=== PATIENT | female | born 1990 | race Caucasian/White ===

== ENCOUNTER 2017-02-16 01:32 | Emergency (ER) | payer OTHER | END 2017-02-16 04:10 | disposition left against medical advice (07) | LOC: ER1 01:32 | DX: Z53.21 Procedure and treatment not carried out due to patient leaving prior to being seen by health care provider (principal) | CPT/HCPCS: 93005 ==

== ENCOUNTER 2020-10-10 18:26 | Emergency (ER) | payer OTHER ==
[~2020-10-10 18:26] MED LIST: HYDROCODON-ACE1 EAC4 PO; IBUPROFEN600 MG PO; IMITREX50 MG PO; LOVENOX30 MG/0.3 SQ; NORCO 7.5-3251 EACH PO; PERCOCET 5-3251 EACH PO; ZOFRAN 4 MG TAB4 MG PO; ZOFRAN4 MG PO
== END 2020-10-10 21:55 | disposition left against medical advice (07) ==
LOC: ER1 18:26
DX: R07.9 Chest pain, unspecified (principal); Z53.21 Procedure and treatment not carried out due to patient leaving prior to being seen by health care provider
CPT/HCPCS: 93005

== ENCOUNTER 2020-10-12 23:10 | Emergency (ER) | payer OTHER ==
[2020-10-13 01:35] LABS: HEMOGLOBIN 13.8 gm/dl (12.3-15.3); RED BLOOD COUNT 4.44 M/UL (4.00-5.10); WHITE BLOOD COUNT 7.6 K/UL (4.5-11.0)
[2020-10-13 02:03] LABS: BUN/CREATININE RATIO 22 (0-10)
== END 2020-10-13 05:09 | disposition home or self-care (01) ==
LOC: ER1 23:10
PROVIDERS: Physician Assistant
DX: R07.89 Other chest pain (principal); R06.02 Shortness of breath; R00.0 Tachycardia, unspecified; F41.9 Anxiety disorder, unspecified; F32.9 Major depressive disorder, single episode, unspecified; Z79.899 Other long term (current) drug therapy
CPT/HCPCS: 71045; 80053; 82550; 82553; 83874; 83880; 84484; 85025; 85379; 85610; 85730; 93005; 99285

== ENCOUNTER 2021-04-29 14:47 | Emergency (ER) | payer OTHER ==
[2021-04-29 15:47] LABS: HEMOGLOBIN 13.7 gm/dl (12.3-15.3); RED BLOOD COUNT 4.28 M/UL (4.00-5.10); WHITE BLOOD COUNT 5.6 K/UL (4.5-11.0)
[2021-04-29 16:14] LABS: BUN/CREATININE RATIO 14 (0-10)
[2021-04-29] MEDS ORDERED: IBUPROFEN600 MG PO (16:59)
== END 2021-04-29 17:25 | disposition home or self-care (01) ==
LOC: ER1 14:47
PROVIDERS: Emergency Medicine
DX: M79.662 Pain in left lower leg (principal); M25.562 Pain in left knee; M79.652 Pain in left thigh
CPT/HCPCS: 73502; 73562; 80053; 82550; 82553; 83735; 83874; 84484; 84703; 85025; 85379; 93005; 96374; 99284; J1885

== ENCOUNTER → 2021-09-12 | Outpatient (CLI) | payer OTHER ==
[~2021-09-12] MED LIST changes: +LEXAPRO10 MG PO; +[UNRECOGNIZED DRUG - OTHER] PO
== END ==
LOC: OPSV2 09:30
DX: Z01.812 Encounter for preprocedural laboratory examination (principal)
CPT/HCPCS: 83036

== ENCOUNTER → 2021-09-18 | Day surgery (SDC) | payer OTHER ==
[~2021-09-18] VITALS: Ht 154.9 cm; Wt 87.5 kg
[~2021-09-18] MED LIST changes: +CYCLOBENZAPRINE10 MG PO; +ENDOCET 7.5-321 EACH PO
== END | disposition home or self-care (01) ==
LOC: OR 07:45
DX: T84.84XA Pain due to internal orthopedic prosthetic devices, implants and grafts, initial encounter (principal); Z96.661 Presence of right artificial ankle joint; X58.XXXA Exposure to other specified factors, initial encounter; Y79.2 Prosthetic and other implants, materials and accessory orthopedic devices associated with adverse incidents; Y83.8 Other surgical procedures as the cause of abnormal reaction of the patient, or of later complication, without mention of misadventure at the time of the procedure; Y92.9 Unspecified place or not applicable; Z72.0 Tobacco use; Z20.822 Contact with and (suspected) exposure to COVID-19
CPT/HCPCS: 73610; 76000; 84703; J1100; J1170; J1885; J2001; J2250; J2405; J2704; J2710; J3010; J7120